=== PATIENT | female | born 1975 | race Caucasian/White ===

== ENCOUNTER 2017-06-27 21:04 | Emergency (ER) | payer OTHER ==
[~2017-06-27 21:04] MED LIST: AMBI10TA PO; CYMB30CA PO; HYDR12.56 PO; HYDR200T42 PO; LANSO15 PO; LEFL20 PO; POTA25TA4 PO
[2017-06-27 21:08] VITALS: BP 185/110; PULSE 112; RESP 16; TEMP 98.4; O2SAT 96
[2017-06-27 22:48] LABS: AUTOMATED NEUTROPHIL # 8.2 TH/MM3 (1.8-7.7); BASOPHIL # 0.2 TH/MM3 (0-0.2); BASOPHIL % 1.1 % (0.0-2.0); EOSINOPHIL # 0.2 TH/MM3 (0-0.4); EOSINOPHIL % 1.4 % (0.0-4.0); HEMATOCRIT 39.9 % (35.0-46.0); HEMO FLAGS DIFF FINAL; LYMPH % 34.4 % (9.0-44.0); LYMPHOCYTE # 5.1 TH/MM3 (1.0-4.8); MEAN CORPUSCULAR HEMOGLOBIN 29.9 PG (27.0-34.0); MEAN CORPUSCULAR HGB CONC 33.6 % (32.0-36.0); MONO % 7.9 % (0.0-8.0); NEUT % 55.2 % (16.0-70.0); PLATELET COUNT 302 TH/MM3 (150-450); RED BLOOD COUNT 4.48 MIL/MM3 (4.00-5.30); WHITE BLOOD COUNT 14.9 TH/MM3 (4.0-11.0)
[2017-06-27 23:17] LABS: ANION GAP 8 MEQ/L (5-15); BICARBONATE 28.6 MEQ/L (21.0-32.0); BLOOD UREA NITROGEN 12 MG/DL (7-18); CHLORIDE 104 MEQ/L (98-107); GLOMERULAR FILTRATION RATE 60 ML/MIN (>89); POTASSIUM 3.5 MEQ/L (3.5-5.1); SODIUM (NA) 141 MEQ/L (136-145)
[2017-06-27 23:19] LABS: ALT (GPT) 41 U/L (10-53); AST (GOT) 25 U/L (15-37)
[2017-06-27 23:21] LABS: ALKALINE PHOSPHATASE 119 U/L (45-117); TOTAL BILIRUBIN ADULT 0.2 MG/DL (0.2-1.0)
[2017-06-27 23:44] VITALS: BP 172/86; PULSE 98; RESP 20; O2SAT 99
[2017-06-28 01:08] VITALS: BP 141/81; PULSE 84; RESP 16; O2SAT 97
[2017-06-28 01:20] LABS: BLOOD, URINE NEG (NEG); COMMENT (UR) CULT NOT INDICATED; CULTURE IF INDICATED CULT NOT INDICATED; GLUCOSE,URINE NEG (NEG); KETONE, URINE NEG (NEG); MUCUS URINE FEW /lpf (OCC); NITRITE,URINE NEG (NEG); SQUAMOUS EPITHELIAL CELL URINE 2 /hpf (0-5); URINE COLOR YELLOW (YELLW/STRAW)
--- NOTE | 2017-06-28 02:39 | PD ---
HPI Chief Complaint: Syncope/Near-Syncope Time Seen by Provider: 02:14 Travel History International Travel<30 days: No Contact w/Intl Traveler<30days: No Traveled to known affect area: No History of Present Illness HPI The patient is a 41 year old female who presents to the [facility] emergency department with a history of near syncope with generalized weakness that began at 6:30PM. It occurred while walking down the steps. She grabbed the railing and suddenly sat down so that she would not pass out. Her vision went dim. She had tingling in her fingers. She has back pain from suddenly grabbing the railing that radiates into the left arm. On review of systems, the patient denies having any recent known fevers, cough, congestion, neck pain, chest pain, shortness of breath, abdominal pain, vomiting, diarrhea, urinary symptoms, or neurologic symptoms. LMP: IUD in place. PFS Past Medical History Narrative Medical The patient's past medical history is significant for Anxiety disorder, insomnia , gastritisc hypertension, lupus, and RA. PcP: CRESENCIO. Anxiety: Yes Fibromyalgia: Yes Gastrointestinal Disorders: Yes (hx gastritis) Hypertension: Yes Insomnia: Yes ?: Not LMP: "A WHILE AGO", IUD IN PLACE Past Surgical History Narrative Surgical The patient's past surgical history is significant for cholecystectomy, tonsillectomy. Cholecystectomy: Yes Tonsillectomy: Yes Social History Alcohol Use: No Tobacco Use: No Substance Use: No Allergies-Medications (Allergen,Severity, Reaction): Coded Allergies: Sulfa (Sulfonamide Antibiotics) (Unverified Allergy, Unknown, 06/27/17) doxycycline (Unverified Allergy, Unknown, 06/27/17) lisinopril (Unverified Allergy, Unknown, 06/27/17) minocycline (Unverified Allergy, Unknown, 06/27/17) penicillin G (Unverified Allergy, Unknown, 06/27/17) tigecycline (Unverified Allergy, Unknown, 06/27/17) sulfamethoxazole (Unverified Adverse Reaction, Severe, Hives, 06/27/17) trimethoprim (Unverified Adverse Reaction, Severe, Hives, 06/27/17) Reported Meds & Prescriptions Reported Meds & Active Scripts Active Narrative Medication prevacid, embrel, arava, plaquenil, gabapentin, ambien, cymbalta, HCTZ. Review of Systems General / Constitutional: No: Fever Eyes: No: Visual changes HENT: Positive: Lightheadedness, No: Headaches Cardiovascular: No: Chest Pain or Discomfort Respiratory: No: Shortness of Breath Gastrointestinal: No: Abdominal Pain Genitourinary: No: Dysuria Musculoskeletal: Positive: Myalgias, Pain (left upper back) Skin: No Rash, No Hives Neurologic: Positive: Weakness (generalized.), No: Focal Abnormalities, Change in Mentation, Slurred Speech, Sensory Disturbance Psychiatric: No: Depression Endocrine: No: Polydipsia Hematologic/Lymphatic: No: Easy Bruising Physical Exam Narrative General: The patient is a well-developed well-nourished female in no acute distress. Head and Neck exam: Head is normocephalic atraumatic. Eyes: EOMI, pupils are equal round and reactive to light. Nose: Midline septum with pink mucous membranes Mouth: Dentition unremarkable. Moist mucus membranes. Posterior oropharynx is not erythematous. No tonsillar hypertrophy. Uvula midline. Airway patent. Neck: No palpable lymphadenopathy. No nuchal rigidity. No thyromegaly. Cardiovascular: Regular rate and rhythm without murmurs, gallops, or rubs. Lungs: Clear to auscultation bilaterally. No wheezes, rhonchi, or rales. Abdomen: Soft, without tenderness to palpation in all 4 quadrants of the abdomen. No guarding, rebound, or rigidity. Normal bowel sounds are audible. No tenderness on palpation of McBurney's point. Extremities: No clubbing, cyanosis, or edema. 2+ pulses in all 4 extremities. No calf tenderness on palpation. Back: No spinous process tenderness to palpation. No costovertebral angle tenderness to palpation. The patient reports tenderness on palpation along the lower aspect under the spinous process of the scapula. The patient is noted to have reported tenderness on palpation just medial to the scapula. There is no step- off or crepitus. No erythema or ecchymosis. No flail segment. Neurologic Exam: Cranial nerves 2-12 were intact on exam. Strength is 5/5 in all 4 extremities. No sensory deficits noted. Skin Exam: No rash noted. Intact skin that is warm and dry. Data Data Last Documented VS Vital Signs Date Time Temp Pulse Resp B/P (MAP) Pulse Ox O2 Delivery O2 Flow Rate FiO2 06/28/17 05:58 06/28/17 05:54 80 16 97 Room Air 06/27/17 21:08 98.4 Orders Orders Electrocardiogram (06/27/17 21:50) Complete Blood Count With Diff (06/27/17 21:50) Comprehensive Metabolic Panel (06/27/17 21:50) Ed Urine Pregnancytest Poc (06/28/17 00:40) Urinalysis - C+S If Indicated (06/28/17 00:40) Sodium Chlor 0.9% 1000 Ml Inj (Ns 1000 M (06/28/17 03:45) Ct Brain W/O Iv Contrast(Rout) (06/28/17 03:51) Chest, Single Ap (06/28/17 04:00) Orthostatic Vital Signs (06/28/17 04:00) Labs Laboratory Tests Test 06/27/17 22:17 06/28/17 01:00 White Blood Count 14.9 TH/MM3 Red Blood Count 4.48 MIL/MM3 Hemoglobin 13.4 GM/DL Hematocrit 39.9 % Mean Corpuscular Volume 89.0 FL Mean Corpuscular Hemoglobin 29.9 PG Mean Corpuscular Hemoglobin Concent 33.6 % Red Cell Distribution Width 14.0 % Platelet Count 302 TH/MM3 Mean Platelet Volume 9.2 FL Neutrophils (%) (Auto) 55.2 % Lymphocytes (%) (Auto) 34.4 % Monocytes (%) (Auto) 7.9 % Eosinophils (%) (Auto) 1.4 % Basophils (%) (Auto) 1.1 % Neutrophils # (Auto) 8.2 TH/MM3 Lymphocytes # (Auto) 5.1 TH/MM3 Monocytes # (Auto) 1.2 TH/MM3 Eosinophils # (Auto) 0.2 TH/MM3 Basophils # (Auto) 0.2 TH/MM3 CBC Comment DIFF FINAL Differential Comment Blood Urea Nitrogen 12 MG/DL Creatinine 1.02 MG/DL Random Glucose 79 MG/DL Total Protein 8.4 GM/DL Albumin 3.8 GM/DL Calcium Level 9.2 MG/DL Alkaline Phosphatase 119 U/L Aspartate Amino Transf (AST/SGOT) 25 U/L Alanine Aminotransferase (ALT/SGPT) 41 U/L Total Bilirubin 0.2 MG/DL Sodium Level 141 MEQ/L Potassium Level 3.5 MEQ/L Chloride Level 104 MEQ/L Carbon Dioxide Level 28.6 MEQ/L Anion Gap 8 MEQ/L Estimat Glomerular Filtration Rate 60 ML/MIN Urine Color YELLOW Urine Turbidity CLEAR Urine pH 6.0 Urine Specific [place] 1.017 Urine Protein NEG mg/dL Urine Glucose (UA) NEG mg/dL Urine Ketones NEG mg/dL Urine Occult Blood NEG Urine Nitrite NEG Urine Bilirubin NEG Urine Urobilinogen LESS THAN 2.0 MG/DL Urine Leukocyte Esterase NEG Urine RBC LESS THAN 1 /hpf Urine WBC 3 /hpf Urine Squamous Epithelial Cells 2 /hpf Urine Mucus FEW /lpf Microscopic Urinalysis Comment CULT NOT INDICATED MDM Medical Decision Making Medical Screen Exam Complete: Yes Emergency Medical Condition: Yes Medical Record Reviewed: Yes Interpretation(s) Last Impressions Chest X-Ray 06/28/17399 Signed Impressions: Service Date/Time: Wednesday, June 28, 2017 04:11 - CONCLUSION: No evidence of acute cardiopulmonary disease. Abiel Ventura MD Head CT 06/28/17 0351 Signed Impressions: Service Date/Time: Wednesday, June 28, 2017 04:23 - CONCLUSION: Negative noncontrast head CT. Abiel Ventura MD Differential Diagnosis Orthostasis, versus vagovagal syncope, versus cardiac arrhythmia, versus dehydration, versus intracranial abnormality, versus electrolyte derangements Narrative Course During the course of the patients emergency department visit, the patients history, examination, and differential diagnosis were reviewed with the patient. The patient had IV access obtained and blood work sent for analysis. The patient was placed on a freight traffic consultant with oximetry and blood pressure monitoring. An ECG was done on arrival. The patient's ECG reveals a sinus rhythm with a heart rate of 87, no acute ST segment elevation or depression, T waves are inverted in lead 3, V1. QRS duration is 104 ms, QTC is 394 ms. Orthostatic vital signs were done and negative. The patient was initially provided normal saline 1 L IV fluid bolus. The patients laboratory studies were reviewed and remarkable for white count 14.9, hemoglobin 13.4, platelets 302 with a normal differential, CMP is remarkable for creatinine of 1.02, GFR 60, alkaline phosphatase 119, total protein 8.4, urinalysis unremarkable. Radiology studies were reviewed and remarkable for a CT scan of the brain that shows no acute abnormality. A chest x-ray that shows no acute abnormality. As the patient was grabbing for the railing, the patient strained her upper back. The patient was instructed to take Tylenol as needed for discomfort. The patient is instructed regarding the importance of close follow-up with her primary care physician to the [facility] for reexamination in the next 2 days. The patient is resting comfortably and feels better, is alert and in no distress. The patients results and examination findings were discussed with the patient. The repeat examination is unremarkable and benign. The history, exam, diagnostic testing, and current condition do not suggest any significant pathology to warrant further testing, continued ED treatment, admission, or surgical evaluation at this point. The vital signs have been stable. The patient does not have uncontrollable pain, intractable vomiting, or other significant symptoms. The patient's condition is stable and appropriate for discharge. The patient will pursue further outpatient evaluation with a primary care physician or other designated or consulting physician as indicated in the discharge instructions. The patient expressed understanding and was agreeable with this plan. Diagnosis Primary Impression: Near syncope Referrals: Primary Care Physician 2 days Patient Instructions: Dehydration (ED), General Instructions Med/Other Pt SpecificInfo: No Change to Meds Disposition: 01 DISCHARGE HOME Condition: Stable Shivani Tuttle MD Jun 28, 2017 02:39
[2017-06-28] MEDS ORDERED: SODIUM CHLOR 0.9% 1000 ML INJ 1,000 ML IV ONE (03:45)
[2017-06-28 04:07] VITALS: BP_SYST 144; BP_SYST 148; BP_DIAS 71; BP_DIAS 75; RESP 16
[2017-06-28 04:10] VITALS: BP 153/80; RESP 16
--- NOTE | 2017-06-28 04:36 | RADRPT ---
EXAM DATE/TIME: 06/28/2017 04:11 [facility] COMPARISON: CHEST PA & LAT, May 28, 2016, 12:57. INDICATIONS : Short of breath. MEDICAL HISTORY : None. SURGICAL HISTORY : None. ENCOUNTER: Initial ACUITY: 1 day PAIN SCORE: 0/10 LOCATION: Bilateral chest FINDINGS: A single view of the chest demonstrates the lungs to be symmetrically aerated without evidence of mas s, infiltrate or effusion. The cardiomediastinal contours are unremarkable. Osseous structures are intact. CONCLUSION: No evidence of acute cardiopulmonary disease. Abiel Ventura MD on June 28, 2017 at 4:34 Board Certified Radiologist. This report was verified electronically.
--- NOTE | 2017-06-28 04:41 | RADRPT ---
EXAM DATE/TIME: 06/28/2017 04:23 [facility] COMPARISON: No previous studies available for comparison. INDICATIONS : Syncopal episode. RADIATION DOSE: 56.35 CTDIvol (mGy) MEDICAL HISTORY : Hypertension. Gastritis. Fibromyalgia. SURGICAL HISTORY : Tonsillectomy. Cholecystectomy. ENCOUNTER: Initial ACUITY: 1 day PAIN SCALE: 0/10 LOCATION: cranial TECHNIQUE: Multiple contiguous axial images were obtained of the head. Using automated exposure control and adj ustment of the mA and/or kV according to patient size, radiation dose was kept as low as reasonably a chievable to obtain optimal diagnostic quality images. DICOM format image data is available electro nically for review and comparison. FINDINGS: CEREBRUM: The ventricles are normal for age. No evidence of midline shift, mass lesion, hemorrhage or acute in farction. No extra-axial fluid collections are seen. POSTERIOR FOSSA: The cerebellum and brainstem are intact. The 4th ventricle is midline. The cerebellopontine angle i s unremarkable. EXTRACRANIAL: The visualized portion of the orbits is intact. SKULL: The calvaria is intact. No evidence of skull fracture. CONCLUSION: Negative noncontrast head CT. Abiel Ventura MD on June 28, 2017 at 4:40 Board Certified Radiologist. This report was verified electronically.
[2017-06-28 05:54] VITALS: BP 153/80; PULSE 80; RESP 16; O2SAT 97
--- NOTE | 2017-06-28 16:40 | EKG ---
Date Performed: 06/28/2017 Time Performed: 00:49:19 PTAGE: 41 years EKG: Sinus rhythm Compared to prior tracing no significant change NORMAL ECG PREVIOUS TRACING : 05/28/2016 12.10 DOCTOR: Valentina Castañeda Interpretating Date/Time 06/28/2017 16:37:23
== END 2017-06-28 06:04 | disposition home or self-care (01) ==
LOC: NEPC 21:04
DX: R55 Syncope and collapse (principal); S29.012A Strain of muscle and tendon of back wall of thorax, initial encounter; R53.1 Weakness; R20.2 Paresthesia of skin; I10 Essential (primary) hypertension; Z86.59 Personal history of other mental and behavioral disorders; Z87.39 Personal history of other diseases of the musculoskeletal system and connective tissue; Z87.19 Personal history of other diseases of the digestive system; X58.XXXA Exposure to other specified factors, initial encounter
CPT/HCPCS: 70450; 71010; 80053; 81001; 84703; 85025; 93005; 96360; 99285; J7030